=== PATIENT | female | born 1990 | race African-American/Black ===

== ENCOUNTER 2017-05-19 19:18 | Emergency (ER) | payer OTHER ==
[~2017-05-19] VITALS: Ht 170.2 cm; Wt 79.1 kg
[2017-05-19 21:10] LABS: ADD MIUA? YES; BILIRUBIN NEGATIVE; BLOOD NEGATIVE; COLOR YELLOW ((YELLOW)); GLUCOSE (STRIP) NEGATIVE; KETONES NEGATIVE; LEUKOCYTES TRACE; NITRITE NEGATIVE; PROTEIN (STRIP) NEGATIVE; SPECIFIC GRAVITY 1.025 (1.000-1.030)
[2017-05-19 21:14] LABS: BACTERIA NONE SEEN /HPF; EPITHELIAL CELLS 1+ /HPF; MUCUS TRACE /LPF; RED BLOOD CELLS 0-5 /HPF (0-5); UCUL ADDED? NO; WHITE BLOOD CELLS 0-5 /HPF (0-5)
[2017-05-19 22:10] VITALS: BP 124/80
[2017-05-22 12:11] LABS: CHLAMYDIA TRACHOMATIS NEGATIVE; NEISSERIA GONORRHOEAE NEGATIVE
== END 2017-05-19 22:10 | disposition home or self-care (01) ==
LOC: EME 19:18
PROVIDERS: Nurse Practitioner Family
DX: A64 Unspecified sexually transmitted disease (principal)
CPT/HCPCS: 81003; 87210; 87491; 87591; 99281; 99284; J0696

== ENCOUNTER 2017-07-17 15:36 | Emergency (ER) | payer OTHER ==
[~2017-07-17] VITALS: Ht 170.2 cm; Wt 75.9 kg
[2017-07-17] MEDS ORDERED: NAPROSYN500 MG PO (19:29)
[2017-07-17] MEDS ORDERED: FLEXERIL5 MG PO (19:29)
[2017-07-17 19:45] VITALS: BP 125/86
== END 2017-07-17 19:45 | disposition home or self-care (01) ==
LOC: EME 15:36
DX: S70.02XA Contusion of left hip, initial encounter (principal); W01.198A Fall on same level from slipping, tripping and stumbling with subsequent striking against other object, initial encounter; Y99.0 Civilian activity done for income or pay
CPT/HCPCS: 73502; 99281; 99282